=== PATIENT | female | born 1950 | race Caucasian/White ===

== ENCOUNTER 2021-09-04 12:47 | Inpatient (IN) ==
[2021-09-04] MEDS ORDERED: NS 1,000 ML IV 1,000 ML IV ONE (14:25)
[2021-09-04] MEDS ORDERED: ZOFRAN INJ 4 MG VIAL IVP ONE ×2 (14:25→19:32)
[2021-09-04] MEDS ORDERED: NS 1,000 ML IV 1,000 ML ONE ×2 (14:34→19:12)
[2021-09-04] MEDS ORDERED: ZOFRAN INJ 4 MG VIAL ONE ×2 (14:34→19:40)
[2021-09-04 15:12] LABS: BASOPHILS % (AUTO) 0.1 % (0.2-1.0); HEMATOCRIT 33.3 % (36.0-47.0); HEMOGLOBIN 12.3 g/dL (12.0-16.0); LYMPHOCYTES # (AUTO) 0.6 X10^3/uL (1.3-2.9); LYMPHOCYTES % (AUTO) 7.8 % (21.0-51.0); MEAN CORPUSCULAR HEMOGLOBIN 28.1 pg (27.0-34.0); MEAN CORPUSCULAR HGB CONC 36.8 g/dL (33.0-35.0); MEAN CORPUSCULAR VOLUME 76.3 fL (80.0-100.0); MEAN PLATELET VOLUME 7.8 fL (7.4-11.0); MONOCYTES # (AUTO) 0.7 x10^3/uL (0.3-0.8); MONOCYTES % (AUTO) 10.2 % (0.0-13.0); NEUTROPHILS # (AUTO) 5.9 x10^3/uL (2.2-4.8); NEUTROPHILS % (AUTO) 81.9 % (42.0-75.0); RED BLOOD COUNT 4.37 X10^6/uL (3.5-5.4); RED CELL DISTRIBUTION WIDTH 13.1 % (11.6-16.5); WHITE BLOOD COUNT 7.2 X10^3/uL (3.6-10.0)
[2021-09-04 15:31] LABS: eGFR NON BLACK RACES > 60 (>60)
--- NOTE | 2021-09-04 15:49 | DR.GENAD ---
HPI Time Seen Time Seen by Provider: 09/04/21 15:41 PCP Primary Care Physician: SUSSY MALLOY HPI Comment HPI Comment: A 70 y/o female presents with nausea, vomiting, body aches x > 1week. She went to the ED at [facility] 6 days ago for same and only thing that came out of these tests was a positive UTI for which she was sent home on oral antibiotics. Still not keeping things down. Complaint/Symptoms Chief Complaint:: FAMILY REPORTS THAT PT HAD A BLADDER INFECTION, PT IS HAVING N/V AND CAN'T KEEP ANYTHING DOWN ( PT WAS IN ER [facility] LASTFRIDAY , FOR THIS SAME ISSUE ) COVID-19 Coronavirus risk:travel/contact w/high risk person: No Has patient experienced Coronavirus symptoms: No Nurses notes reviewed Nurses Notes Review: Yes Source History Provided: Patient and Family Member Mode of Arrival Mode of Arrival: Wheelchair Timing Onset of Chief Complaint: 09/01/21 Came on: Gradually PMH PMH Past Medical History: Yes Past Medical History: Dyslipidemia and Hypertension Past Medical History Comment: CVA , BR Past Surgical History: No Family History History of Family Medical Conditions: Yes Family Medical History Comment: HYPERLIPIDS,BR Social History Does patient currently use any type of tobacco product: No Have you used tobacco products in the last 12 months: No Type of Tobacco Use: None Does any household member use tobacco: No Alcohol Use: None Do you use any recreational Drugs:: No Lives With: Alone Lives Where: Home Travel Risk Coronavirus risk:travel/contact w/high risk person: No Has patient experienced Coronavirus symptoms: No Infectious screening In the last 2 months have you had wt loss of >10#?: NO Have you had fever, night sweats or hemotysis?: No Have you traveled outside the country in the last 6 months?: No Isolation: Standard ROS Review of Systems Constitutional: No Symptoms Reported Eyes: No Symptoms Reported ENTM: No Symptoms Reported Respiratoy: No Symptoms Reported Cardiovascular: No Symptoms Reported Gastrointestinal/Abdominal: Nausea and Vomiting Genitourinary: No Symptoms Reported Neurological: No Symptoms Reported Musculoskeletal: No Symptoms Reported Integumentary: No Symptoms Reported Hematologic/Lymphatic: No Symptoms Reported Endocrine: No Symptoms Reported Psychiatric: No Symptoms Reported PE Vital Signs Vitals: Temperature 96.6 F Pulse Rate 87 Respiratory Rate 18 Blood Pressure 143/80 O2 Sat by Pulse Oximetry 97 General Limitations: No Limitations General Appearance: Alert Head Head Exam: Normal Inspection, Atraumatic and Normocephalic Eyes Eye exam: Normal Appearance and EOMI ENT ENT Exam: Normal Exam, Normal Oropharynx, Normal External Ear Exam, Mucous Membranes Moist and TM's Normal Bilaterally Neck Neck Exam: Normal Inspection, Full ROM and Trachea Midline Chest Chest Inspection: Normal Inspection and Symmetric Chest Wall Rise Respiratory Respiratory Exam: Normal Lung Sounds Bilat Cardiovascular Cardiovascular Exam: Regular Rate, Normal Rhythm, Normal Heart Sounds, +S1 and +S2 Abdominal Exam Abdominal Exam: Normal Inspection, Normal Bowel Sounds and Soft Extremities Extremities Exam: Normal Inspection and Full ROM Back Back Exam: Normal Inspection and Full ROM Neurologic Neurological Exam: Alert and Oriented X3 Psychiatric Psychiatric Exam: Normal Affect and Normal Mood Skin Skin Exam: Intact COURSE Reevaluation 1st: Improved Education/Counseling Education/Counseling: Patient, Education and Counseling Educated On: Treatment, Diagnosis, Prognosis and Needs for Follow Up ROR Labs Reviewed Result Diagrams: 09/09/21 06:10 09/09/21 06:10 Laboratory: WBC 7.2 X10^3/uL (3.6-10.0) 09/04/21 14:42 RBC 4.37 X10^6/uL (3.5-5.4) 09/04/21 14:42 Hgb 12.3 g/dL (12.0-16.0) 09/04/21 14:42 Hct 33.3 % (36.0-47.0) L 09/04/21 14:42 MCV 76.3 fL (80.0-100.0) L 09/04/21 14:42 MCH 28.1 pg (27.0-34.0) 09/04/21 14:42 MCHC 36.8 g/dL (33.0-35.0) H 09/04/21 14:42 RDW 13.1 % (11.6-16.5) 09/04/21 14:42 Plt Count 295 X10^3/uL (150.0-450.0) 09/04/21 14:42 MPV 7.8 fL (7.4-11.0) 09/04/21 14:42 Neut % (Auto) 81.9 % (42.0-75.0) H 09/04/21 14:42 Lymph % (Auto) 7.8 % (21.0-51.0) L 09/04/21 14:42 [place] % (Auto) 10.2 % (0.0-13.0) 09/04/21 14:42 Eos % (Auto) 0.0 % (0.9-2.9) L 09/04/21 14:42 Baso % (Auto) 0.1 % (0.2-1.0) L 09/04/21 14:42 Neut # (Auto) 5.9 x10^3/uL (2.2-4.8) H 09/04/21 14:42 Lymph # (Auto) 0.6 X10^3/uL (1.3-2.9) L 09/04/21 14:42 [place] # (Auto) 0.7 x10^3/uL (0.3-0.8) 09/04/21 14:42 Eos # (Auto) 0.0 x10^3/uL (0.0-0.2) 09/04/21 14:42 Baso # (Auto) 0.0 X10^3/uL (0.0-0.1) 09/04/21 14:42 Absolute Nucleated RBC 0.3 /100WBC 09/04/21 14:42 Sodium 111 mmol/L (136-145) L* 09/04/21 16:09 Corrected Sodium TNP 09/04/21 16:09 Potassium 2.0 mmol/L (3.5-5.1) L* 09/04/21 16:09 Chloride 76 mmol/L (98-107) L* 09/04/21 16:09 Carbon Dioxide 30.1 mmol/L (21-32) 09/04/21 16:09 BUN 14 mg/dL (7-18) 09/04/21 16:09 Creatinine 0.65 mg/dL (0.55-1.02) 09/04/21 16:09 Est GFR (MDRD) Af Amer > 60 (>60) 09/04/21 16:09 Est GFR (MDRD) Non-Af > 60 (>60) 09/04/21 16:09 Glucose 106 mg/dL (65-99) H 09/04/21 16:09 Plasma/Ser Osmolality 227 mOsm/kg (280-303) L 09/04/21 06:55 Calcium 8.7 mg/dL (8.5-10.1) 09/04/21 16:09 Corrected Calcium TNP 09/04/21 16:09 Phosphorus 2.6 mg/dL (2.6-4.7) 09/04/21 16:04 Magnesium 1.6 mg/dL (1.7-2.9) L 09/04/21 16:04 Total Bilirubin 1.30 mg/dL (0.2-1.0) H 09/04/21 16:09 AST 29 Units/L (15-37) 09/04/21 16:09 ALT 37 Units/L (12-78) 09/04/21 16:09 Alkaline Phosphatase 84 Units/L (46-116) 09/04/21 16:09 Total Protein 7.0 g/dL (6.4-8.2) 09/04/21 16:09 Albumin 3.7 g/dL (3.4-5.0) 09/04/21 16:09 Globulin 3.3 g/dL (2.5-4.5) 09/04/21 16:09 Albumin/Globulin Ratio 1.1 Ratio (1.1-2.1) 09/04/21 16:09 SARS CoV-2 RNA Rapid RADAMES Negative (NEGATIVE) 09/04/21 14:44 Opioid Opioid Risk Tool Age (Blayne box if 16-45): No History of Preadolescent Sexual Abuse: No Total: 0 Total Score Risk Category: Low Risk Copyright: Roderick SEQUEIRA predicting aberrant behaviors Diagnosis Discharge Problem: Acute hyponatremia, Hypokalemia Nausea & vomiting Qualifiers: Vomiting type: unspecified Qualified Code(s): R11.2 - Nausea with vomiting, unspecified Instructions Instructions: Hypokalemia Dehydration, Adult, [id number] Nausea and Vomiting, Adult Rehydration, Adult Weakness, [id number] Nausea and Vomiting, Adult, [id number] Forms: Excuse From Work or School Precautions for COVID19 [facility] Social Distancing
[2021-09-04 16:35] LABS: ALANINE AMINOTRANSFERASE 37 Units/L (12-78); ALBUMIN 3.7 g/dL (3.4-5.0); ALKALINE PHOSPHATASE 84 Units/L (46-116); ASPARTATE AMINO TRANSFERASE 29 Units/L (15-37); BLOOD UREA NITROGEN 14 mg/dL (7-18); CALCIUM 8.7 mg/dL (8.5-10.1); CARBON DIOXIDE 30.1 mmol/L (21-32); CREATININE 0.65 mg/dL (0.55-1.02)
[2021-09-04 16:45] LABS: CHLORIDE 76 mmol/L (98-107); SODIUM 111 mmol/L (136-145)
[2021-09-04] MEDS ORDERED: SODIUM CHL HYPERTONIC ** 3% ** 500 ML IV NR (17:00)
[2021-09-04] MEDS ORDERED: K-RIDER 10 MEQ/NS 100 ML 10 MEQ/100 ML BAG IV ONE ×2 (18:58→19:11)
[2021-09-04 19:27] LABS: MAGNESIUM 1.6 mg/dL (1.7-2.9); PHOSPHORUS 2.6 mg/dL (2.6-4.7)
[2021-09-04] MEDS ORDERED: MORPHINE SULFATE INJ 2 MG INJ IVP ONE (19:36)
[2021-09-04] MEDS ORDERED: MORPHINE SULFATE INJ 2 MG INJ ONE (19:40)
[2021-09-04 23:28] VITALS: BMI 21.3
[2021-09-05] MEDS ORDERED: POTASSIUM CHL 40 MEQ/NS 0.45% 500 ML IV PRN (05:38)
[2021-09-05] MEDS ORDERED: POTASSIUM CHL 60 MEQ/NS 0.45% 500 ML IV PRN (05:38)
[2021-09-05] MEDS ORDERED: K-RIDER 10 MEQ/NS 100 ML 10 MEQ/100 ML BAG IV PRN (05:38)
[2021-09-05] MEDS ORDERED: K-DUR TAB 20 MEQ PO PRN (05:38)
[2021-09-05] MEDS ORDERED: MICRO K EXTEN CAP 10 MEQ PO PRN (05:38)
[2021-09-05] MEDS ORDERED: POTASSIUM CHLORIDE LIQ 20 MEQ UDC PO PRN (05:38)
[2021-09-05] MEDS ORDERED: MAGNESIUM SULFATE 1 GRAM/100 mL PREMIX 1 G/100 ML BAG IV ONE ×2 (06:25→12:05)
[2021-09-05] MEDS: MAGNESIUM SULFATE 1 GRAM/100 mL PREMIX 1 G/100 ML BAG IV PRN ×2 (06:34→12:17)
[2021-09-05 09:49] LABS: ALANINE AMINOTRANSFERASE 36 Units/L (12-78); ALBUMIN 3.5 g/dL (3.4-5.0); ALKALINE PHOSPHATASE 83 Units/L (46-116); ASPARTATE AMINO TRANSFERASE 31 Units/L (15-37); BLOOD UREA NITROGEN 11 mg/dL (7-18); CALCIUM 8.6 mg/dL (8.5-10.1); CARBON DIOXIDE 30.2 mmol/L (21-32); CHLORIDE 86 mmol/L (98-107); CREATININE 0.65 mg/dL (0.55-1.02); TOTAL PROTEIN 6.7 g/dL (6.4-8.2); eGFR NON BLACK RACES > 60 (>60)
[2021-09-05 09:53] LABS: SODIUM 124 mmol/L (136-145)
[2021-09-05] MEDS: KLOR-CON PO PRN ×2 (10:09→19:09)
[2021-09-05] MEDS: TOPROL XL PO SCH (10:10)
[2021-09-05] MEDS: CRESTOR TAB 10 MG PO SCH (10:10)
[2021-09-05] MEDS ORDERED: NS + KCL 20 MEQ/L 1,000 ML IV ONE (10:11)
[2021-09-05] MEDS ORDERED: K-DUR TAB 20 MEQ PO ONE (10:12)
[2021-09-05] MEDS: NS + KCL 20 MEQ/L 1,000 ML IV SCH (11:47)
--- NOTE | 2021-09-05 14:40 | DR.H&P ---
H&P History & Physical for Day of: H&P Date: 09/05/21 Chief Complaint Chief Complaint: nausea, vomiting and weakness Allergies Allergies Allergy/AdvReac Type Severity Reaction Status Date / Time No Known Drug Allergies Allergy Verified 09/04/21 12:54 History of Present Illness History of Present Illness: Ms Diamond is a 70y/o female with a PMH of HTN and HLD presented with worsening N/V and generalized weakness. Patient has been sick for over a week. She was seen in [place] last week for similar Sx and found to have UTI. She was discharged from the ER with antibiotic. She states her symptoms continued to get worse and she was not able to keep anything down. In the ER, she was noted to have potassium of 2.0, Mg 1.6 and Na: 111. She was started on 3% NS along with K and Mg replacement. She feels slightly better this morning. She has not had any vomiting overnight. Labs/imaging reviewed Plan: will follow pending labs, monitor Na and K levels. Switch from 3% to NS with KCl at 75cc/hr. Repeat BMP this evening. Resume home medications. Start clears and advance as tolerated. Continue zofran prn. Monitor AM labs and imaging. Past Medical History Past Medical History: Dyslipidemia and Hypertension Past Surgical History Surgical History: Hysterectomy and Tonsillectomy Family History Family Medical History: Diabetes Mellitus and Cancer Social History Does patient currently use any type of tobacco product: No Have you used tobacco products in the last 12 months: No Type of Tobacco Use: None Does any household member use tobacco: No Alcohol Use: None Drug Use: Prescription Drugs Prescription drug monitoring program results: PDMP reviewed and no concerns identified Medications Home Medications: No Known Drug Allergies Allergy (Verified 09/04/21 12:54) CONTINUE taking the following medications alendronate 70 mg PO WEEKLY 09/05/21 [History] aspirin 81 mg PO DAILY 09/05/21 [History] losartan-hydrochlorothiazide 1 tab PO DAILY 09/05/21 [History] metoprolol succinate 25 mg PO DAILY 09/05/21 [History] rosuvastatin 40 mg PO DAILY 09/05/21 [History] Labs Result Diagrams: 09/04/21 14:42 09/05/21 05:49 Labs: Laboratory WBC 7.2 X10^3/uL (3.6-10.0) 09/04/21 14:42 RBC 4.37 X10^6/uL (3.5-5.4) 09/04/21 14:42 Hgb 12.3 g/dL (12.0-16.0) 09/04/21 14:42 Hct 33.3 % (36.0-47.0) L 09/04/21 14:42 MCV 76.3 fL (80.0-100.0) L 09/04/21 14:42 MCH 28.1 pg (27.0-34.0) 09/04/21 14:42 MCHC 36.8 g/dL (33.0-35.0) H 09/04/21 14:42 RDW 13.1 % (11.6-16.5) 09/04/21 14:42 Plt Count 295 X10^3/uL (150.0-450.0) 09/04/21 14:42 MPV 7.8 fL (7.4-11.0) 09/04/21 14:42 Neut % (Auto) 81.9 % (42.0-75.0) H 09/04/21 14:42 Lymph % (Auto) 7.8 % (21.0-51.0) L 09/04/21 14:42 [place] % (Auto) 10.2 % (0.0-13.0) 09/04/21 14:42 Eos % (Auto) 0.0 % (0.9-2.9) L 09/04/21 14:42 Baso % (Auto) 0.1 % (0.2-1.0) L 09/04/21 14:42 Neut # (Auto) 5.9 x10^3/uL (2.2-4.8) H 09/04/21 14:42 Lymph # (Auto) 0.6 X10^3/uL (1.3-2.9) L 09/04/21 14:42 [place] # (Auto) 0.7 x10^3/uL (0.3-0.8) 09/04/21 14:42 Eos # (Auto) 0.0 x10^3/uL (0.0-0.2) 09/04/21 14:42 Baso # (Auto) 0.0 X10^3/uL (0.0-0.1) 09/04/21 14:42 Absolute Nucleated RBC 0.3 /100WBC 09/04/21 14:42 Sodium 124 mmol/L (136-145) L* 09/05/21 05:49 Corrected Sodium TNP 09/05/21 05:49 Potassium 2.3 mmol/L (3.5-5.1) L* 09/05/21 05:49 Chloride 86 mmol/L (98-107) L 09/05/21 05:49 Carbon Dioxide 30.2 mmol/L (21-32) 09/05/21 05:49 BUN 11 mg/dL (7-18) 09/05/21 05:49 Creatinine 0.65 mg/dL (0.55-1.02) 09/05/21 05:49 Est GFR (MDRD) Af Amer > 60 (>60) 09/05/21 05:49 Est GFR (MDRD) Non-Af > 60 (>60) 09/05/21 05:49 Glucose 84 mg/dL (65-99) 09/05/21 05:49 Calcium 8.6 mg/dL (8.5-10.1) 09/05/21 05:49 Corrected Calcium TNP 09/05/21 05:49 Phosphorus 2.6 mg/dL (2.6-4.7) 09/04/21 16:04 Magnesium 1.9 mg/dL (1.7-2.9) 09/05/21 05:49 Total Bilirubin 1.00 mg/dL (0.2-1.0) 09/05/21 05:49 AST 31 Units/L (15-37) 09/05/21 05:49 ALT 36 Units/L (12-78) 09/05/21 05:49 Alkaline Phosphatase 83 Units/L (46-116) 09/05/21 05:49 Total Protein 6.7 g/dL (6.4-8.2) 09/05/21 05:49 Albumin 3.5 g/dL (3.4-5.0) 09/05/21 05:49 Globulin 3.2 g/dL (2.5-4.5) 09/05/21 05:49 Albumin/Globulin Ratio 1.1 Ratio (1.1-2.1) 09/05/21 05:49 Ur Random Sodium 43 mmol/L (40-220) 09/04/21 23:05 SARS CoV-2 RNA Rapid RADAMES Negative (NEGATIVE) 09/04/21 14:44 Review of Systems Constitutional: Weakness Eyes: No Symptoms Reported ENT: No Symptoms Reported Respiratory: No Symptoms Reported Cardiovascular: No Symptoms Reported Gastrointestinal: Nausea, Vomiting and Abdominal Pain Genitourinary: No Symptoms Reported Musculoskeletal: No Symptoms Reported Skin: No Symptoms Reported Neurological: No Symptoms Reported Physical Exam Vital Signs: Temperature 98.3 F Pulse Rate [Apical] 65 Pulse Rate 70 Respiratory Rate 17 Blood Pressure [Left Arm] 140/65 Blood Pressure 138/68 O2 Sat by Pulse Oximetry 100 Oriented: Normal Eyes: Normal Ear: Normal Nose: Normal Throat: Normal Respiratory: Clear Throughout Cardiovascular: Normal Auscultation: Bowel Sounds: Normal Palpation: Normal Tenderness: Normal Skin: Decreased Turgur Musculoskeletal: Normal Psychiatric: Normal Mood Description: Calm Affect: Normal Speech Pattern: Clear and Appropriate Assessment/Plan (1) Acute hyponatremia: Status: Acute (2) Hypokalemia: Status: Acute (3) Nausea & vomiting: Qualifiers: Vomiting type: unspecified Qualified Code(s): R11.2 - Nausea with vo miting, unspecified Status: Acute (4) Hypomagnesemia: Status: Acute (5) Dehydration: Status: Acute (6) Generalized weakness: Status: Acute Review H&P Reviewed: Yes Patient was examined?: Yes
[2021-09-05 17:01] LABS: BLOOD UREA NITROGEN 10 mg/dL (7-18); CALCIUM 8.5 mg/dL (8.5-10.1); CARBON DIOXIDE 27.8 mmol/L (21-32); CHLORIDE 91 mmol/L (98-107); CREATININE 0.71 mg/dL (0.55-1.02); SODIUM 128 mmol/L (136-145); eGFR NON BLACK RACES > 60 (>60)
[2021-09-05] MEDS: ZOFRAN INJ 4 MG VIAL IVP PRN (20:13)
[2021-09-06] MEDS: NS + KCL 20 MEQ/L 1,000 ML IV SCH ×2 (00:11→15:06)
[2021-09-06 06:29] LABS: BASOPHILS % (AUTO) 0.3 % (0.2-1.0); EOSINOPHILS % (AUTO) 0.1 % (0.9-2.9); HEMOGLOBIN 10.5 g/dL (12.0-16.0); LYMPHOCYTES # (AUTO) 1.5 X10^3/uL (1.3-2.9); MEAN CORPUSCULAR HEMOGLOBIN 28.1 pg (27.0-34.0); MEAN CORPUSCULAR VOLUME 78.1 fL (80.0-100.0); MEAN PLATELET VOLUME 7.6 fL (7.4-11.0); MONOCYTES # (AUTO) 0.7 x10^3/uL (0.3-0.8); NEUTROPHILS # (AUTO) 4.2 x10^3/uL (2.2-4.8); NEUTROPHILS % (AUTO) 65.6 % (42.0-75.0); RED BLOOD COUNT 3.72 X10^6/uL (3.5-5.4); RED CELL DISTRIBUTION WIDTH 13.2 % (11.6-16.5); WHITE BLOOD COUNT 6.4 X10^3/uL (3.6-10.0)
[2021-09-06 06:37] LABS: ALANINE AMINOTRANSFERASE 32 Units/L (12-78); ALBUMIN 2.8 g/dL (3.4-5.0); ALKALINE PHOSPHATASE 73 Units/L (46-116); ASPARTATE AMINO TRANSFERASE 21 Units/L (15-37); BLOOD UREA NITROGEN 10 mg/dL (7-18); CALCIUM 7.8 mg/dL (8.5-10.1); CARBON DIOXIDE 29.4 mmol/L (21-32); CHLORIDE 99 mmol/L (98-107); COR CA(FOR HYPOALB) 8.8 mg/dL (8.5-10.1); CREATININE 0.59 mg/dL (0.55-1.02); MAGNESIUM 2.3 mg/dL (1.7-2.9); SODIUM 133 mmol/L (136-145); TOTAL PROTEIN 5.5 g/dL (6.4-8.2); eGFR NON BLACK RACES > 60 (>60)
[2021-09-06] MEDS ORDERED: K-DUR TAB 20 MEQ PO ONE (08:04)
[2021-09-06] MEDS: TOPROL XL PO SCH (09:24)
[2021-09-06] MEDS: KLOR-CON PO PRN (09:24)
[2021-09-06] MEDS: ASPIRIN EC 81 MG PO SCH (09:24)
[2021-09-06] MEDS: CRESTOR TAB 10 MG PO SCH (09:24)
--- NOTE | 2021-09-06 10:16 | PCM.PROG ---
Progress Note Progress Note for Day of Date of Exam: 09/06/21 Subjective Subjective: Patient seen at bedside, no events overnight. She has been able to tolerate full liquids. Denies any N/V/D or abdominal pain. She still reports weakness. She has been ambulating to the bathroom. Her Na levels have improved, K is still low but better than before. Labs/imaging reviewed Plan: continue hydration with NS +KCl, give PO KCL 60 mg EQ. PT/OT as tolerated. Advance diet to soft diet. Zofran prn. Continue home medications. Repeat BMP this afternoon. Past Medical Family Social History Past Med/Fam/Surg Hx: No changes since H&P Allergies: Allergies Iodinated Contrast Media Allergy (Mild, Verified 09/05/21 15:38) Review of Systems ROS: No change since H&P Vital Signs and I&O's Vital Signs: Temperature 98.1 F Pulse Rate [Apical] 65 Pulse Rate 69 Respiratory Rate 21 Blood Pressure [Left Arm] 140/65 Blood Pressure 115/56 O2 Sat by Pulse Oximetry 95 Intake and Output: Intake & Output 09/03/21 09/04/21 09/05/21 09/06/21 23:59 23:59 23:59 23:59 Intake Total 353 / 353 1841 / 1841 695 / 695 Balance 353 / 353 1841 / 1841 695 / 695 Physical Exam Oriented: Normal Eyes: Normal Ear: Normal Nose: Normal Throat: Normal Respiratory: Generalized and Diminished Cardiovascular: Normal Auscultation: Bowel Sounds: Normal Tenderness: Normal Skin: Decreased Turgur Musculoskeletal: Normal Psychiatric: Normal Mood Description: Calm Affect: Normal Speech Pattern: Clear and Appropriate Laboratory and Diagnostics Result Diagrams: 09/06/21 05:32 09/06/21 05:32 Labs: Laboratory WBC 6.4 X10^3/uL (3.6-10.0) 09/06/21 05:32 RBC 3.72 X10^6/uL (3.5-5.4) 09/06/21 05:32 Hgb 10.5 g/dL (12.0-16.0) L 09/06/21 05:32 Hct 29.0 % (36.0-47.0) L 09/06/21 05:32 MCV 78.1 fL (80.0-100.0) L 09/06/21 05:32 MCH 28.1 pg (27.0-34.0) 09/06/21 05:32 MCHC 36.0 g/dL (33.0-35.0) H 09/06/21 05:32 RDW 13.2 % (11.6-16.5) 09/06/21 05:32 Plt Count 273 X10^3/uL (150.0-450.0) 09/06/21 05:32 MPV 7.6 fL (7.4-11.0) 09/06/21 05:32 Neut % (Auto) 65.6 % (42.0-75.0) 09/06/21 05:32 Lymph % (Auto) 23.0 % (21.0-51.0) 09/06/21 05:32 [place] % (Auto) 11.0 % (0.0-13.0) 09/06/21 05:32 Eos % (Auto) 0.1 % (0.9-2.9) L 09/06/21 05:32 Baso % (Auto) 0.3 % (0.2-1.0) 09/06/21 05:32 Neut # (Auto) 4.2 x10^3/uL (2.2-4.8) 09/06/21 05:32 Lymph # (Auto) 1.5 X10^3/uL (1.3-2.9) 09/06/21 05:32 [place] # (Auto) 0.7 x10^3/uL (0.3-0.8) 09/06/21 05:32 Eos # (Auto) 0.0 x10^3/uL (0.0-0.2) 09/06/21 05:32 Baso # (Auto) 0.0 X10^3/uL (0.0-0.1) 09/06/21 05:32 Absolute Nucleated RBC 0.0 /100WBC 09/06/21 05:32 Sodium 133 mmol/L (136-145) L 09/06/21 05:32 Corrected Sodium TNP 09/06/21 05:32 Potassium 2.9 mmol/L (3.5-5.1) L* 09/06/21 05:32 Chloride 99 mmol/L (98-107) 09/06/21 05:32 Carbon Dioxide 29.4 mmol/L (21-32) 09/06/21 05:32 BUN 10 mg/dL (7-18) 09/06/21 05:32 Creatinine 0.59 mg/dL (0.55-1.02) 09/06/21 05:32 Est GFR (MDRD) Af Amer > 60 (>60) 09/06/21 05:32 Est GFR (MDRD) Non-Af > 60 (>60) 09/06/21 05:32 Glucose 86 mg/dL (65-99) 09/06/21 05:32 Calcium 7.8 mg/dL (8.5-10.1) L 09/06/21 05:32 Corrected Calcium 8.8 mg/dL (8.5-10.1) 09/06/21 05:32 Phosphorus 2.6 mg/dL (2.6-4.7) 09/04/21 16:04 Magnesium 2.3 mg/dL (1.7-2.9) 09/06/21 05:32 Total Bilirubin 0.70 mg/dL (0.2-1.0) 09/06/21 05:32 AST 21 Units/L (15-37) 09/06/21 05:32 ALT 32 Units/L (12-78) 09/06/21 05:32 Alkaline Phosphatase 73 Units/L (46-116) 09/06/21 05:32 Total Protein 5.5 g/dL (6.4-8.2) L 09/06/21 05:32 Albumin 2.8 g/dL (3.4-5.0) L 09/06/21 05:32 Globulin 2.7 g/dL (2.5-4.5) 09/06/21 05:32 Albumin/Globulin Ratio 1.0 Ratio (1.1-2.1) L 09/06/21 05:32 Ur Random Sodium 43 mmol/L (40-220) 09/04/21 23:05 SARS CoV-2 RNA Rapid RADAMES Negative (NEGATIVE) 09/04/21 14:44 Plan (1) Acute hyponatremia: Status: Acute (2) Hypokalemia: Status: Acute (3) Nausea & vomiting: Status: Acute Qualifiers: Vomiting type: unspecified Qualified Code(s): R11.2 - Nausea with vomiting, unspecified (4) Hypomagnesemia: Status: Acute (5) Dehydration: Status: Acute (6) Generalized weakness: Status: Acute
[2021-09-06 13:25] LABS: BLOOD UREA NITROGEN 7 mg/dL (7-18); CALCIUM 8.2 mg/dL (8.5-10.1); CARBON DIOXIDE 27.7 mmol/L (21-32); CHLORIDE 100 mmol/L (98-107); COR NA(FOR HYPERGLY) 135 mmol/L (136-145); CREATININE 0.72 mg/dL (0.55-1.02); SODIUM 134 mmol/L (136-145); eGFR NON BLACK RACES > 60 (>60)
[2021-09-06] MEDS ORDERED: COLACE CAP 100 MG PO ONE (21:00)
[2021-09-07 13:31] LABS: BLOOD UREA NITROGEN 7 mg/dL (7-18); CARBON DIOXIDE 23.8 mmol/L (21-32); CHLORIDE 102 mmol/L (98-107); CREATININE 0.51 mg/dL (0.55-1.02); SODIUM 134 mmol/L (136-145); eGFR NON BLACK RACES > 60 (>60)
[2021-09-07 13:51] LABS: BASOPHILS % (AUTO) 0.7 % (0.2-1.0); EOSINOPHILS % (AUTO) 0.6 % (0.9-2.9); HEMATOCRIT 32.2 % (36.0-47.0); HEMOGLOBIN 11.4 g/dL (12.0-16.0); LYMPHOCYTES # (AUTO) 1.6 X10^3/uL (1.3-2.9); LYMPHOCYTES % (AUTO) 24.5 % (21.0-51.0); MEAN CORPUSCULAR HEMOGLOBIN 28.2 pg (27.0-34.0); MEAN CORPUSCULAR HGB CONC 35.3 g/dL (33.0-35.0); MEAN PLATELET VOLUME 7.6 fL (7.4-11.0); MONOCYTES # (AUTO) 0.5 x10^3/uL (0.3-0.8); MONOCYTES % (AUTO) 7.5 % (0.0-13.0); NEUTROPHILS # (AUTO) 4.5 x10^3/uL (2.2-4.8); NEUTROPHILS % (AUTO) 66.7 % (42.0-75.0); RED BLOOD COUNT 4.03 X10^6/uL (3.5-5.4); RED CELL DISTRIBUTION WIDTH 13.2 % (11.6-16.5); WHITE BLOOD COUNT 6.7 X10^3/uL (3.6-10.0)
[2021-09-07] MEDS: KLOR-CON PO PRN (15:06)
[2021-09-07] MEDS: NS + KCL 20 MEQ/L 1,000 ML IV SCH (15:13)
--- NOTE | 2021-09-07 18:47 | PCM.PROG ---
Progress Note Progress Note for Day of Date of Exam: 09/07/21 Subjective Subjective: Patient seen at bedside, no events overnight. She has been able to tolerate full liquids. Denies any N/V/D or abdominal pain. She still reports weakness. She has been ambulating to the bathroom. Her Na levels have improved, K is still low but better than before. Labs/imaging reviewed Past Medical Family Social History Past Med/Fam/Surg Hx: No changes since H&P Allergies: Allergies Iodinated Contrast Media Allergy (Mild, Verified 09/05/21 15:38) Review of Systems ROS: No change since H&P Vital Signs and I&O's Vital Signs: Temperature 98.9 F Pulse Rate [Apical] 65 Pulse Rate 63 Respiratory Rate 18 Blood Pressure [Left Arm] 140/65 Blood Pressure 132/58 O2 Sat by Pulse Oximetry 96 Intake and Output: Intake & Output 09/05/21 09/06/21 09/07/21 09/08/21 11:59 11:59 11:59 11:59 Intake Total 563 / 563 2326 / 2326 1440 / 1440 840 / 840 Balance 563 / 563 2326 / 2326 1440 / 1440 840 / 840 Physical Exam Oriented: Normal Eyes: Normal Ear: Normal Nose: Normal Throat: Normal Respiratory: Generalized and Diminished Cardiovascular: Normal Auscultation: Bowel Sounds: Normal Tenderness: Normal Skin: Decreased [place]urgur Musculoskeletal: Normal Psychiatric: Normal Mood Description: Calm Affect: Normal Speech Pattern: Clear and Appropriate Laboratory and Diagnostics Result Diagrams: 09/07/21 05:00 09/07/21 06:05 Labs: Laboratory WBC 6.7 X10^3/uL (3.6-10.0) 09/07/21 05:00 RBC 4.03 X10^6/uL (3.5-5.4) 09/07/21 05:00 Hgb 11.4 g/dL (12.0-16.0) L 09/07/21 05:00 Hct 32.2 % (36.0-47.0) L 09/07/21 05:00 MCV 80.0 fL (80.0-100.0) 09/07/21 05:00 MCH 28.2 pg (27.0-34.0) 09/07/21 05:00 MCHC 35.3 g/dL (33.0-35.0) H 09/07/21 05:00 RDW 13.2 % (11.6-16.5) 09/07/21 05:00 Plt Count 283 X10^3/uL (150.0-450.0) 09/07/21 05:00 MPV 7.6 fL (7.4-11.0) 09/07/21 05:00 Neut % (Auto) 66.7 % (42.0-75.0) 09/07/21 05:00 Lymph % (Auto) 24.5 % (21.0-51.0) 09/07/21 05:00 [place] % (Auto) 7.5 % (0.0-13.0) 09/07/21 05:00 Eos % (Auto) 0.6 % (0.9-2.9) L 09/07/21 05:00 Baso % (Auto) 0.7 % (0.2-1.0) 09/07/21 05:00 Neut # (Auto) 4.5 x10^3/uL (2.2-4.8) 09/07/21 05:00 Lymph # (Auto) 1.6 X10^3/uL (1.3-2.9) 09/07/21 05:00 [place] # (Auto) 0.5 x10^3/uL (0.3-0.8) 09/07/21 05:00 Eos # (Auto) 0.0 x10^3/uL (0.0-0.2) 09/07/21 05:00 Baso # (Auto) 0.0 X10^3/uL (0.0-0.1) 09/07/21 05:00 Absolute Nucleated RBC 0.0 /100WBC 09/07/21 05:00 Sodium 134 mmol/L (136-145) L 09/07/21 06:05 Corrected Sodium TNP 09/07/21 06:05 Potassium 3.4 mmol/L (3.5-5.1) L 09/07/21 06:05 Chloride 102 mmol/L (98-107) 09/07/21 06:05 Carbon Dioxide 23.8 mmol/L (21-32) 09/07/21 06:05 BUN 7 mg/dL (7-18) 09/07/21 06:05 Creatinine 0.51 mg/dL (0.55-1.02) L 09/07/21 06:05 Est GFR (MDRD) Af Amer > 60 (>60) 09/07/21 06:05 Est GFR (MDRD) Non-Af > 60 (>60) 09/07/21 06:05 Glucose 86 mg/dL (65-99) 09/07/21 06:05 Plasma/Ser Osmolality 227 mOsm/kg (280-303) L 09/04/21 06:55 Calcium 8.0 mg/dL (8.5-10.1) L 09/07/21 06:05 Corrected Calcium 8.8 mg/dL (8.5-10.1) 09/06/21 05:32 Phosphorus 2.6 mg/dL (2.6-4.7) 09/04/21 16:04 Magnesium 2.3 mg/dL (1.7-2.9) 09/06/21 05:32 Total Bilirubin 0.70 mg/dL (0.2-1.0) 09/06/21 05:32 AST 21 Units/L (15-37) 09/06/21 05:32 ALT 32 Units/L (12-78) 09/06/21 05:32 Alkaline Phosphatase 73 Units/L (46-116) 09/06/21 05:32 Total Protein 5.5 g/dL (6.4-8.2) L 09/06/21 05:32 Albumin 2.8 g/dL (3.4-5.0) L 09/06/21 05:32 Globulin 2.7 g/dL (2.5-4.5) 09/06/21 05:32 Albumin/Globulin Ratio 1.0 Ratio (1.1-2.1) L 09/06/21 05:32 Urine Osmolality 259 mOsm/kg 09/04/21 23:05 Ur Random Sodium 43 mmol/L (40-220) 09/04/21 23:05 SARS CoV-2 RNA Rapid RADAMES Negative (NEGATIVE) 09/04/21 14:44 Radiology Reviewed: Yes Plan (1) Acute hyponatremia: Status: Acute Narrative Support Text: Improved. Plan: NS IVF (2) Hypokalemia: Status: Acute Plan: Potassium replacement protocol. (3) Nausea & vomiting: Status: Acute Qualifiers: Vomiting type: unspecified Qualified Code(s): R11.2 - Nausea with vomiting, unspecified (4) Hypomagnesemia: Status: Acute (5) Dehydration: Status: Acute Narrative Support Text: Resolved. (6) Generalized weakness: Status: Acute Plan: Ambulate today.
[2021-09-07] MEDS: COLACE CAP 100 MG PO SCH (21:15)
[2021-09-08] MEDS: NS + KCL 20 MEQ/L 1,000 ML IV SCH ×3 (04:43→22:00)
[2021-09-08] MEDS: ZOFRAN INJ 4 MG VIAL IVP PRN ×2 (05:59→13:31)
[2021-09-08 07:08] LABS: BASOPHILS # (AUTO) 0.1 X10^3/uL (0.0-0.1); BASOPHILS % (AUTO) 0.7 % (0.2-1.0); EOSINOPHILS % (AUTO) 0.2 % (0.9-2.9); HEMATOCRIT 34.5 % (36.0-47.0); LYMPHOCYTES # (AUTO) 1.7 X10^3/uL (1.3-2.9); MEAN CORPUSCULAR HGB CONC 34.7 g/dL (33.0-35.0); MEAN CORPUSCULAR VOLUME 80.5 fL (80.0-100.0); MEAN PLATELET VOLUME 7.6 fL (7.4-11.0); MONOCYTES # (AUTO) 0.4 x10^3/uL (0.3-0.8); MONOCYTES % (AUTO) 4.6 % (0.0-13.0); NEUTROPHILS # (AUTO) 6.2 x10^3/uL (2.2-4.8); NEUTROPHILS % (AUTO) 74.5 % (42.0-75.0); RED BLOOD COUNT 4.28 X10^6/uL (3.5-5.4); RED CELL DISTRIBUTION WIDTH 13.4 % (11.6-16.5); WHITE BLOOD COUNT 8.3 X10^3/uL (3.6-10.0)
[2021-09-08 07:26] LABS: BLOOD UREA NITROGEN 7 mg/dL (7-18); CALCIUM 8.7 mg/dL (8.5-10.1); CARBON DIOXIDE 25.5 mmol/L (21-32); CHLORIDE 98 mmol/L (98-107); CREATININE 0.57 mg/dL (0.55-1.02); SODIUM 137 mmol/L (136-145); eGFR NON BLACK RACES > 60 (>60)
[2021-09-08] MEDS: ASPIRIN EC 81 MG PO SCH (09:06)
[2021-09-08] MEDS: CRESTOR TAB 10 MG PO SCH (09:06)
[2021-09-08] MEDS: TOPROL XL PO SCH (09:07)
[2021-09-08 09:58] LABS: BILIRUBIN,URINE NEGATIVE (NEGATIVE); BLOOD/HEMOGLOBIN,URINE 1+ (NEGATIVE); GLUCOSE, URINE NEGATIVE (NEGATIVE); KETONES,URINE NEGATIVE (NEGATIVE); LEUKOCYTE ESTERASE ,URINE NEGATIVE (NEGATIVE); NITRITES,URINE NEGATIVE (NEGATIVE); PROTEIN,URINE NEGATIVE (NEGATIVE); UROBILINOGEN,URINE NORMAL (NORMAL)
[2021-09-08 10:03] LABS: APPEARANCE,URINE CLEAR (CLEAR); BACTERIA,URINE NEGATIVE /HPF (NEGATIVE); COLOR,URINE STRAW (YELLOW); RBC,URINE 0-2 /HPF (0-3); SQUAMOUS EPITHELIAL CELL,UR FEW /HPF (NEGATIVE)
[2021-09-08] MEDS: COLACE CAP 100 MG PO SCH (22:20)
[2021-09-09 06:50] LABS: BLOOD UREA NITROGEN 8 mg/dL (7-18); CALCIUM 8.7 mg/dL (8.5-10.1); CARBON DIOXIDE 24.6 mmol/L (21-32); CHLORIDE 102 mmol/L (98-107); CREATININE 0.61 mg/dL (0.55-1.02); SODIUM 136 mmol/L (136-145); eGFR NON BLACK RACES > 60 (>60)
[2021-09-09 06:58] LABS: BASOPHILS % (AUTO) 0.6 % (0.2-1.0); EOSINOPHILS % (AUTO) 0.5 % (0.9-2.9); HEMATOCRIT 32.9 % (36.0-47.0); HEMOGLOBIN 11.7 g/dL (12.0-16.0); LYMPHOCYTES # (AUTO) 1.4 X10^3/uL (1.3-2.9); MEAN CORPUSCULAR HEMOGLOBIN 28.5 pg (27.0-34.0); MEAN CORPUSCULAR HGB CONC 35.5 g/dL (33.0-35.0); MEAN CORPUSCULAR VOLUME 80.4 fL (80.0-100.0); MEAN PLATELET VOLUME 7.2 fL (7.4-11.0); MONOCYTES # (AUTO) 0.4 x10^3/uL (0.3-0.8); MONOCYTES % (AUTO) 5.3 % (0.0-13.0); NEUTROPHILS # (AUTO) 5.8 x10^3/uL (2.2-4.8); NEUTROPHILS % (AUTO) 75.6 % (42.0-75.0); RED BLOOD COUNT 4.09 X10^6/uL (3.5-5.4); RED CELL DISTRIBUTION WIDTH 13.2 % (11.6-16.5); WHITE BLOOD COUNT 7.7 X10^3/uL (3.6-10.0)
[2021-09-09 07:16] LABS: ALANINE AMINOTRANSFERASE 125 Units/L (12-78); ALBUMIN 3.4 g/dL (3.4-5.0); ALKALINE PHOSPHATASE 89 Units/L (46-116); ASPARTATE AMINO TRANSFERASE 75 Units/L (15-37); TOTAL PROTEIN 6.6 g/dL (6.4-8.2)
--- NOTE | 2021-09-09 09:01 | W.DIS.FURT ---
Summary of Discharge Discharge Summary of Date Date of Exam: 09/09/21 Admission Date Date of Admission: 09/04/21 Admission Diagnosis Patient Problems (Updated 09/11/21 @ 14:03 by Laura Edouard) Acute hyponatremia (Acute) E87.1 Hypokalemia (Resolved) E87.6 Nausea & vomiting (Resolved) R11.2 Hospital Course: Ms Diamond is a 70y/o female with a PMH of HTN and HLD presented with worsening N/V and generalized weakness. Patient has been sick for over a week. She was seen in [place] last week for similar Sx and found to have UTI. She was discharged from the ER with antibiotic. She states her symptoms continued to get worse and she was not able to keep anything down. In the ER, she was noted to have potassium of 2.0, Mg 1.6 and Na: 111. She was started on 3% NS along with K and Mg replacement. Her labs were monitored daily and electrolytes replaced as needed. Her diet was advanced as tolerated. UA did not show any infection. PT/OT was also consulted. Patient was able to ambulate in the room. She did not have any further episodes of N/V. She was tolerated PO intake. She was stable for discharge. She will follow up with PCP in one week. Vital Signs: Vital Signs (72 hours) 09/06/21 12:00 09/06/21 16:00 09/07/21 16:00 Temperature 98.1 F 98.9 F 98.8 F Pulse Rate 61 63 72 Respiratory Rate 20 18 18 Blood Pressure 141/67 132/58 136/72 O2 Sat by Pulse Oximetry 99 96 98 09/07/21 20:00 09/08/21 00:00 09/08/21 04:00 Temperature 98.1 F 98.2 F 98.9 F Pulse Rate 68 74 75 Respiratory Rate 18 18 18 Blood Pressure 118/60 137/63 163/74 O2 Sat by Pulse Oximetry 97 99 100 09/08/21 08:00 09/08/21 12:00 09/08/21 16:00 Temperature 99.1 F 98.7 F 98.9 F Pulse Rate 72 62 68 Respiratory Rate 18 20 18 Blood Pressure 138/73 158/69 126/60 O2 Sat by Pulse Oximetry 99 100 99 09/08/21 20:00 09/09/21 00:00 09/09/21 04:00 Temperature 97.5 F L 99.9 F H 99.2 F Pulse Rate 66 74 71 Respiratory Rate 21 22 21 Blood Pressure 145/69 143/72 150/72 O2 Sat by Pulse Oximetry 96 97 99 Labs: Laboratory Last Values WBC 7.7 X10^3/uL (3.6-10.0) 09/09/21 06:10 RBC 4.09 X10^6/uL (3.5-5.4) 09/09/21 06:10 Hgb 11.7 g/dL (12.0-16.0) L 09/09/21 06:10 Hct 32.9 % (36.0-47.0) L 09/09/21 06:10 MCV 80.4 fL (80.0-100.0) 09/09/21 06:10 MCH 28.5 pg (27.0-34.0) 09/09/21 06:10 MCHC 35.5 g/dL (33.0-35.0) H 09/09/21 06:10 RDW 13.2 % (11.6-16.5) 09/09/21 06:10 Plt Count 345 X10^3/uL (150.0-450.0) 09/09/21 06:10 MPV 7.2 fL (7.4-11.0) L 09/09/21 06:10 Neut % (Auto) 75.6 % (42.0-75.0) H 09/09/21 06:10 Lymph % (Auto) 18.0 % (21.0-51.0) L 09/09/21 06:10 [place] % (Auto) 5.3 % (0.0-13.0) 09/09/21 06:10 Eos % (Auto) 0.5 % (0.9-2.9) L 09/09/21 06:10 Baso % (Auto) 0.6 % (0.2-1.0) 09/09/21 06:10 Neut # (Auto) 5.8 x10^3/uL (2.2-4.8) H 09/09/21 06:10 Lymph # (Auto) 1.4 X10^3/uL (1.3-2.9) 09/09/21 06:10 [place] # (Auto) 0.4 x10^3/uL (0.3-0.8) 09/09/21 06:10 Eos # (Auto) 0.0 x10^3/uL (0.0-0.2) 09/09/21 06:10 Baso # (Auto) 0.0 X10^3/uL (0.0-0.1) 09/09/21 06:10 Absolute Nucleated RBC 0.0 /100WBC 09/09/21 06:10 Sodium 136 mmol/L (136-145) 09/09/21 06:10 Corrected Sodium TNP 09/09/21 06:10 Potassium 3.8 mmol/L (3.5-5.1) 09/09/21 06:10 Chloride 102 mmol/L (98-107) 09/09/21 06:10 Carbon Dioxide 24.6 mmol/L (21-32) 09/09/21 06:10 BUN 8 mg/dL (7-18) 09/09/21 06:10 Creatinine 0.61 mg/dL (0.55-1.02) 09/09/21 06:10 Est GFR (MDRD) Af Amer > 60 (>60) 09/09/21 06:10 Est GFR (MDRD) Non-Af > 60 (>60) 09/09/21 06:10 Glucose 91 mg/dL (65-99) 09/09/21 06:10 Plasma/Ser Osmolality 227 mOsm/kg (280-303) L 09/04/21 06:55 Calcium 8.7 mg/dL (8.5-10.1) 09/09/21 06:10 Corrected Calcium TNP 09/09/21 06:10 Phosphorus 2.6 mg/dL (2.6-4.7) 09/04/21 16:04 Magnesium 2.3 mg/dL (1.7-2.9) 09/06/21 05:32 Total Bilirubin 0.60 mg/dL (0.2-1.0) 09/09/21 06:10 AST 75 Units/L (15-37) H 09/09/21 06:10 ALT 125 Units/L (12-78) H 09/09/21 06:10 Alkaline Phosphatase 89 Units/L (46-116) 09/09/21 06:10 Total Protein 6.6 g/dL (6.4-8.2) 09/09/21 06:10 Albumin 3.4 g/dL (3.4-5.0) 09/09/21 06:10 Globulin 3.2 g/dL (2.5-4.5) 09/09/21 06:10 Albumin/Globulin Ratio 1.1 Ratio (1.1-2.1) 09/09/21 06:10 Specimen Type Clean catch urine 09/08/21 09:50 Urine Color Straw (YELLOW) 09/08/21 09:50 Urine Appearance Clear (CLEAR) 09/08/21 09:50 Urine pH 8.0 (5.0 - 8.0) 09/08/21 09:50 Ur Specific [place] 1.015 (1.000-1.030) 09/08/21 09:50 Urine Protein Negative (NEGATIVE) 09/08/21 09:50 Urine Glucose (UA) Negative (NEGATIVE) 09/08/21 09:50 Urine Ketones Negative (NEGATIVE) 09/08/21 09:50 Urine Occult Blood 1+ (NEGATIVE) 09/08/21 09:50 Urine Nitrite Negative (NEGATIVE) 09/08/21 09:50 Urine Bilirubin Negative (NEGATIVE) 09/08/21 09:50 Urine Urobilinogen Normal (NORMAL) 09/08/21 09:50 Ur Leukocyte Esterase Negative (NEGATIVE) 09/08/21 09:50 Urine RBC 0-2 /HPF (0-3) 09/08/21 09:50 Urine WBC 0-2 /HPF (0-5) 09/08/21 09:50 Ur Squamous Epith Cells Few /HPF (NEGATIVE) 09/08/21 09:50 Urine Bacteria Negative /HPF (NEGATIVE) 09/08/21 09:50 Ur Culture Indicated? No/not indicated 09/08/21 09:50 Urine Osmolality 259 mOsm/kg 09/04/21 23:05 Ur Random Sodium 43 mmol/L (40-220) 09/04/21 23:05 SARS CoV-2 RNA Rapid RADAMES Negative (NEGATIVE) 09/04/21 14:44 Reason For Visit: HYPOCHLOREMIA, HYPONATREMIA, HYPOKALEMIA, NAUSEA Discharge Date Discharge Date: 09/09/21 Discharge Diagnosis All Active Problems (Updated 09/11/21 @ 14:03 by Laura Edouard) Generalized weakness (Acute) Dehydration (Acute) Hypomagnesemia (Acute) Acute hyponatremia (Acute) Plan of Treatment: Continue with present treatment and follow up plan. Pt is to keep follow up appointment as instructed and take medications as ordered. Discharge Medications Discharge Medications: Iodinated Contrast Media Allergy (Mild, Verified 09/05/21 15:38) CONTINUE taking the following medications alendronate 70 mg PO WEEKLY 09/05/21 [History] aspirin 81 mg PO DAILY 09/05/21 [History] losartan-hydrochlorothiazide 1 tab PO DAILY 09/05/21 [History] metoprolol succinate 25 mg PO DAILY 09/05/21 [History] rosuvastatin 40 mg PO DAILY 09/05/21 [History] Follow up and Referral Follow Up: 1 Week (PCP) Discharge Disposition Discharge Disposition: Home Discharge Condition: Stable Discharge Plan Discharge Plan Hospital Course: Ms Diamond is a 70y/o female with a PMH of HTN and HLD presented with worsening N/V and generalized weakness. Patient has been sick for over a week. She was seen in [place] last week for similar Sx and found to have UTI. She was discharged from the ER with antibiotic. She states her symptoms continued to get worse and she was not able to keep anything down. In the ER, she was noted to have potassium of 2.0, Mg 1.6 and Na: 111. She was started on 3% NS along with K and Mg replacement. Her labs were monitored daily and electrolytes replaced as needed. Her diet was advanced as tolerated. UA did not show any infection. PT/OT was also consulted. Patient was able to ambulate in the room. She did not have any further episodes of N/V. She was tolerated PO intake. She was stable for discharge. She will follow up with PCP in one week. Patient Disposition: HOME, SELF-CARE Condition: Stable Health Concerns: Post Hospitalization: new medications and changes needed to prevent readmission or further decline. Pt educated and given instructions on all concerns. Plan of Treatment: Continue with present treatment and follow up plan. Pt is to keep follow up appointment as instructed and take medications as ordered. Prescription drug monitoring program results: PDMP reviewed and no concerns identified Prescriptions: Continued alendronate 70 mg tablet 70 mg PO WEEKLY RF: 0 aspirin 81 mg tablet,delayed release (DR/EC) 81 mg PO DAILY RF: 0 losartan-hydrochlorothiazide 100-25 mg tablet 1 tab PO DAILY RF: 0 metoprolol succinate 25 mg tablet extended release 24 hr 25 mg PO DAILY RF: 0 rosuvastatin 40 mg tablet 40 mg PO DAILY RF: 0 Instructions Instructions: Hypokalemia, Dehydration, Adult, [id number], Nausea and Vomiting, Adult, Rehydration, Adult, Weakness, [id number], Nausea and Vomiting, Adult, [id number] Stand Alone Forms: Excuse From Work or School, Precautions for [facility], Patient Portal, Social Distancing
[2021-09-09] MEDS: ASPIRIN EC 81 MG PO SCH (09:26)
[2021-09-09] MEDS: TOPROL XL PO SCH (09:27)
[2021-09-09] MEDS: CRESTOR TAB 10 MG PO SCH (09:27)
--- NOTE | 2021-09-09 12:02 | PCM.PROG ---
Progress Note Progress Note for Day of Date of Exam: 09/08/21 Subjective Subjective: Patient seen at bedside, no events overnight. She has been able to tolerate full liquids but gets. Denies any N/V/D or abdominal pain. She still reports weakness. She has been ambulating to the bathroom. Her Na levels have improved, K is still low but better than before. Patient has no ride to go home today. Discharge in am. Labs/imaging reviewed Past Medical Family Social History Past Med/Fam/Surg Hx: No changes since H&P Allergies: Allergies Iodinated Contrast Media Allergy (Mild, Verified 09/05/21 15:38) Review of Systems ROS: No change since H&P Vital Signs and I&O's Vital Signs: Temperature 99.2 F Pulse Rate [Apical] 65 Pulse Rate 71 Respiratory Rate 21 Blood Pressure [Left Arm] 140/65 Blood Pressure 150/72 O2 Sat by Pulse Oximetry 99 Intake and Output: Intake & Output 09/06/21 09/07/21 09/08/21 09/09/21 11:59 11:59 11:59 11:59 Intake Total 2326 / 2326 1440 / 1440 2504 / 2504 1640 / 1640 Balance 2326 / 2326 1440 / 1440 2504 / 2504 1640 / 1640 Physical Exam Oriented: Normal Eyes: Normal Ear: Normal Nose: Normal Throat: Normal Respiratory: Generalized and Diminished Cardiovascular: Normal Auscultation: Bowel Sounds: Normal Tenderness: Normal Skin: Decreased [place] Musculoskeletal: Normal Psychiatric: Normal Mood Description: Calm Affect: Normal Speech Pattern: Clear and Appropriate Laboratory and Diagnostics Result Diagrams: 09/09/21 06:10 09/09/21 06:10 Labs: Laboratory WBC 7.7 X10^3/uL (3.6-10.0) 09/09/21 06:10 RBC 4.09 X10^6/uL (3.5-5.4) 09/09/21 06:10 Hgb 11.7 g/dL (12.0-16.0) L 09/09/21 06:10 Hct 32.9 % (36.0-47.0) L 09/09/21 06:10 MCV 80.4 fL (80.0-100.0) 09/09/21 06:10 MCH 28.5 pg (27.0-34.0) 09/09/21 06:10 MCHC 35.5 g/dL (33.0-35.0) H 09/09/21 06:10 RDW 13.2 % (11.6-16.5) 09/09/21 06:10 Plt Count 345 X10^3/uL (150.0-450.0) 09/09/21 06:10 MPV 7.2 fL (7.4-11.0) L 09/09/21 06:10 Neut % (Auto) 75.6 % (42.0-75.0) H 09/09/21 06:10 Lymph % (Auto) 18.0 % (21.0-51.0) L 09/09/21 06:10 [place] % (Auto) 5.3 % (0.0-13.0) 09/09/21 06:10 Eos % (Auto) 0.5 % (0.9-2.9) L 09/09/21 06:10 Baso % (Auto) 0.6 % (0.2-1.0) 09/09/21 06:10 Neut # (Auto) 5.8 x10^3/uL (2.2-4.8) H 09/09/21 06:10 Lymph # (Auto) 1.4 X10^3/uL (1.3-2.9) 09/09/21 06:10 [place] # (Auto) 0.4 x10^3/uL (0.3-0.8) 09/09/21 06:10 Eos # (Auto) 0.0 x10^3/uL (0.0-0.2) 09/09/21 06:10 Baso # (Auto) 0.0 X10^3/uL (0.0-0.1) 09/09/21 06:10 Absolute Nucleated RBC 0.0 /100WBC 09/09/21 06:10 Sodium 136 mmol/L (136-145) 09/09/21 06:10 Corrected Sodium TNP 09/09/21 06:10 Potassium 3.8 mmol/L (3.5-5.1) 09/09/21 06:10 Chloride 102 mmol/L (98-107) 09/09/21 06:10 Carbon Dioxide 24.6 mmol/L (21-32) 09/09/21 06:10 BUN 8 mg/dL (7-18) 09/09/21 06:10 Creatinine 0.61 mg/dL (0.55-1.02) 09/09/21 06:10 Est GFR (MDRD) Af Amer > 60 (>60) 09/09/21 06:10 Est GFR (MDRD) Non-Af > 60 (>60) 09/09/21 06:10 Glucose 91 mg/dL (65-99) 09/09/21 06:10 Plasma/Ser Osmolality 227 mOsm/kg (280-303) L 09/04/21 06:55 Calcium 8.7 mg/dL (8.5-10.1) 09/09/21 06:10 Corrected Calcium TNP 09/09/21 06:10 Phosphorus 2.6 mg/dL (2.6-4.7) 09/04/21 16:04 Magnesium 2.3 mg/dL (1.7-2.9) 09/06/21 05:32 Total Bilirubin 0.60 mg/dL (0.2-1.0) 09/09/21 06:10 AST 75 Units/L (15-37) H 09/09/21 06:10 ALT 125 Units/L (12-78) H 09/09/21 06:10 Alkaline Phosphatase 89 Units/L (46-116) 09/09/21 06:10 Total Protein 6.6 g/dL (6.4-8.2) 09/09/21 06:10 Albumin 3.4 g/dL (3.4-5.0) 09/09/21 06:10 Globulin 3.2 g/dL (2.5-4.5) 09/09/21 06:10 Albumin/Globulin Ratio 1.1 Ratio (1.1-2.1) 09/09/21 06:10 Specimen Type Clean catch urine 09/08/21 09:50 Urine Color Straw (YELLOW) 09/08/21 09:50 Urine Appearance Clear (CLEAR) 09/08/21 09:50 Urine pH 8.0 (5.0 - 8.0) 09/08/21 09:50 Ur Specific [place] 1.015 (1.000-1.030) 09/08/21 09:50 Urine Protein Negative (NEGATIVE) 09/08/21 09:50 Urine Glucose (UA) Negative (NEGATIVE) 09/08/21 09:50 Urine Ketones Negative (NEGATIVE) 09/08/21 09:50 Urine Occult Blood 1+ (NEGATIVE) 09/08/21 09:50 Urine Nitrite Negative (NEGATIVE) 09/08/21 09:50 Urine Bilirubin Negative (NEGATIVE) 09/08/21 09:50 Urine Urobilinogen Normal (NORMAL) 09/08/21 09:50 Ur Leukocyte Esterase Negative (NEGATIVE) 09/08/21 09:50 Urine RBC 0-2 /HPF (0-3) 09/08/21 09:50 Urine WBC 0-2 /HPF (0-5) 09/08/21 09:50 Ur Squamous Epith Cells Few /HPF (NEGATIVE) 09/08/21 09:50 Urine Bacteria Negative /HPF (NEGATIVE) 09/08/21 09:50 Ur Culture Indicated? No/not indicated 09/08/21 09:50 Urine Osmolality 259 mOsm/kg 09/04/21 23:05 Ur Random Sodium 43 mmol/L (40-220) 09/04/21 23:05 SARS CoV-2 RNA Rapid RADAMES Negative (NEGATIVE) 09/04/21 14:44 Plan (1) Acute hyponatremia: Status: Resolved Plan: NS IVF (2) Hypokalemia: Status: Resolved Plan: Potassium replacement protocol. (3) Nausea & vomiting: Status: Resolved Qualifiers: Vomiting type: unspecified Qualified Code(s): R11.2 - Nausea with vomiting, unspecified (4) Hypomagnesemia: Status: Acute (5) Dehydration: Status: Resolved (6) Generalized weakness: Status: Acute Narrative Support Text: Improved. Plan: Ambulate today.
[2021-09-09 12:43] VITALS: BP 163/76
[2021-09-09] MEDS: ZOFRAN INJ 4 MG VIAL IVP PRN (12:47)
== END 2021-09-09 13:00 | disposition home or self-care (01) | DRG 641 ==
LOC: ER 12:47 → U 20:50 → MED/SURG 09-05 15:30
PROVIDERS: ADMIT Internal Medicine; ATTEND Internal Medicine